=== PATIENT | male | born 1970 | race Two or more races ===

== ENCOUNTER 2020-04-23 12:44 | Emergency (ER) | payer BC ==
[~2020-04-23] VITALS: Ht 185.4 cm; Wt 138.3 kg
[2020-04-23] MEDS ORDERED: LORAZEPAM INJ 2 MG/ML VIAL ONE ×2 (12:53→14:35)
[2020-04-23] MEDS ORDERED: LORAZEPAM INJ 2 MG/ML VIAL IV ONE ×2 (13:00→15:00)
--- NOTE | 2020-04-23 13:05 | NUR ---
c/o chest tightness for the last week. PT AAOX4, VSS. RR EVEN & UNLABORED. DENIES SOB, DIZZINESS, N/V, ARM/JAW PAIN @ THIS TIME. PLACED ON STARCH CRAB, SR. PT SEEN & EVAL'D BY DR. STEINBERG. MEDICATED ORDERED, PT JOSÉ MIGUEL WELL. WILL CONT TO MONITOR.
[2020-04-23 13:08] LABS: BASOPHILS # (AUTO) 0.1 /CMM (0.0-0.2); BASOPHILS % (AUTO) 0.5 % (0.0-2.0); EOSINOPHILS % (AUTO) 0.9 % (0.0-6.0); HEMATOCRIT 47 % (39-51); HEMOGLOBIN 15.7 g/dL (13.5-17.5); LYMPHOCYTES # (AUTO) 3.2 /CMM (0.8-4.8); LYMPHOCYTES % (AUTO) 33.5 % (20.0-44.0); MEAN CORPUSCULAR HGB CONC 34 g/dl (31.0-36.0); MEAN CORPUSCULAR VOLUME 93 fL (80-96); MONOCYTES # (AUTO) 0.6 /CMM (0.1-1.30); MONOCYTES % (AUTO) 6.5 % (2.0-12.0); NEUTROPHILS # (AUTO) 5.6 /CMM (1.8-8.9); NEUTROPHILS % (AUTO) 58.6 % (43.0-81.0); PLATELET COUNT (AUTO) 389 /CMM (150-450); WHITE BLOOD COUNT (AUTO) 9.6 K/uL (4.3-11.0)
[2020-04-23 13:16] LABS: CALCIUM, SERUM 9.4 mg/dL (8.5-10.1); CARBON DIOXIDE 26 mmol/L (21-32); CHLORIDE 100 mmol/L (98-107); GLUCOSE 110 mg/dL (74-106); POTASSIUM 3.7 mmol/L (3.5-5.1); SODIUM SERUM 136 mmol/L (136-145); UREA NITROGEN, BLOOD 10 mg/dL (7-18)
[2020-04-23 13:23] LABS: ALANINE AMINOTRANSFERASE 58 U/L (12-78); ALBUMIN 4.2 g/dL (3.4-5.0); ALKALINE PHOSPHATASE 52 U/L (46-116); ASPARTATE AMINOTRANSFERASE 23 U/L (15-37); BILIRUBIN,DIRECT 0.2 mg/dL (0.0-0.2); TOTAL PROTEIN, SERUM 7.2 g/dL (6.4-8.2)
[2020-04-23 13:43] LABS: B-TYPE NATRIURETIC PEPTIDE 25 PG/ML (0-125)
[2020-04-23] MEDS ORDERED: LOSA1TAB39 PO (14:15)
[2020-04-23] MEDS ORDERED: LORA-259 PO (14:15)
[2020-04-23] MEDS ORDERED: CT SWABBABLE VALVE TRANS SET 1 EA INFUS.SET MC ONE (14:19)
[2020-04-23] MEDS ORDERED: IOHEXOL-350 100 ML VIAL IV ONE (14:19)
[2020-04-23] MEDS ORDERED: IV NS 0.9% 250 ML IV ONE (14:20)
--- NOTE | 2020-04-23 14:38 | NUR ---
PT IS WHEELED TO CT SCAN VIA WHEELCHAIR.
[2020-04-23] MEDS: METOPROLOL TARTRATE INJ 5 MG/5 ML AMPUL IVP PRN ×2 (14:51→14:56)
[2020-04-23] MEDS ORDERED: NITROGLYCERIN 0.4 MG/TAB BOTTLE ONE (14:52)
[2020-04-23] MEDS ORDERED: METOPROLOL TARTRATE INJ 5 MG/5 ML AMPUL ONE ×2 (14:52→15:31)
[2020-04-23] MEDS ORDERED: NITROGLYCERIN 0.4 MG/TAB BOTTLE SL ONE (15:00)
--- NOTE | 2020-04-23 15:29 | NUR ---
REPORT GIVEN TO PRISCILLA MELGOZA FOR [facility].
--- NOTE | 2020-04-23 15:30 | NUR ---
PATIENT TRANSPORTED BACK TO ER BED 07 VIA WHEELCHAIR, REMAINS IN STABLE CONDITION AT THIS TIME. VSS.
--- NOTE | 2020-04-23 15:37 | NUR ---
PT BACK FROM CT. VSS. RR EVEN & UNLABORED. DENIES CP, SOB, DIZZINESS, N/V, FLORES, ARM/JAW PAIN @ THIS TIME. ON TELE, NSR. WILL CONT TO MONITOR.
[2020-04-23 16:04] VITALS: BP 125/75
--- NOTE | 2020-04-23 16:04 | NUR ---
IV removed. Catheter intact and site benign. Pressure and 4x4 applied to site. No bleeding noted.Patient discharged to home in stable condition. Written and verbal after care instructions given. Patient verbalizes understanding of instruction.
== END 2020-04-23 16:05 | disposition home or self-care (01) ==
LOC: ER 12:47
DX: R07.89 Other chest pain (principal); I10 Essential (primary) hypertension
CPT/HCPCS: 36415; 71045; 75574; 80048; 80076; 83880; 84484 ×2; 85025; 93005 ×2; 96374; 96376; 99285; J2060 ×2; J3490 ×2; J7050; Q9967